=== PATIENT | male | born 1990 | race Caucasian/White ===

== ENCOUNTER 2017-01-21 22:34 | Emergency (ER) | payer OTHER ==
[2017-01-21 22:44] VITALS: BP 155/81
[2017-01-21] MEDS ORDERED: Ibuprofen TAB* 600 MG PO ONE (23:26)
[2017-01-21 23:53] LABS: Benzodiazepine Urine Screen None Detected (None Detect)
--- NOTE | 2017-01-22 00:03 | ED ---
Medical Screening - HPI Summary HPI Summary: 26M presents for drug screen because was at [facility] and was seen snorting some substance. He denies using any drugs. He also states he has dental pain that started today. He states he cracked his tooth today. He denies any fever, swelling around the eye, pain with eye movement, shortness of breath or chest pain. Tooth is located on top left. - History of Current Complaint Chief Complaint: EDGeneral Stated Complaint: POSS DRUG ABUSE Time Seen by Provider: 01/21/17 22:47 PMH/Surg Hx/FS Hx/Imm Hx Endocrine/Hematology History: Denies: Hx Anticoagulant Therapy Cardiovascular History: Denies: Hx Hypertension Infectious Disease History: No Infectious Disease History: Denies: Traveled Outside the [place] in Last 30 Days - Family History Known Family History: Negative: Cardiac Disease - Social History Alcohol Use: None Alcohol Amount: sober Substance Use Type: Reports: None Smoking Status (MU): Former Smoker Review of Systems Negative: Fever Positive: Dental Pain Negative: Chest Pain Negative: Shortness Of Breath All Other Systems Reviewed And Are Negative: Yes Physical Exam Triage Information Reviewed: Yes Vital Signs On Initial Exam: Initial Vitals Temp Pulse Resp BP Pulse Ox 98.2 F 84 18 155/81 98 01/21/17 22:41 01/21/17 22:41 01/21/17 22:41 01/21/17 22:41 01/21/17 22:41 Vital Signs Reviewed: Yes Appearance: Positive: Well-Appearing Skin: Positive: Warm, Dry Head/Face: Positive: Normal Head/Face Inspection Eyes: Positive: Normal, Conjunctiva Clear Dental: Positive: Gross Decay/Caries @ - 15. Negative: Bleeding Respiratory/Lung Sounds: Positive: Clear to Auscultation, Breath Sounds Present Cardiovascular: Positive: Normal, RRR Procedures - Procedure Summary Procedure Summary: Temporary dental filling Cleaned area and numbed area with cetacaine. placed temporary filling in tooth 15. Diagnostics - Vital Signs Vital Signs Temp Pulse Resp BP Pulse Ox 01/21/17 22:41 98.2 F 84 18 155/81 98 - Laboratory Lab Results: Lab Results 01/21/17 Range/Units 23:22 Urine Opiates Screen None detected (None Detect) Ur Barbiturates Screen None detected (None Detect) Ur Phencyclidine Scrn None detected (None Detect) Ur Amphetamines Screen None detected (None Detect) U Benzodiazepines Scrn None detected (None Detect) Urine Cocaine Screen None detected (None Detect) U Cannabinoids Screen None detected (None Detect) Lab Statement: Any lab studies that have been ordered have been reviewed, and results considered in the medical decision making process. Course/Dx - Course Course Of Treatment: 26M presents for drug screen for [facility]. drug screen was negative. patient also states having dental pain. states broke tooth today. discussed and patient agreeable to place temporary filling for pain. placed filling on tooth 15. gave patient dose of pcn here and told to take course while at [facility] to prevent infection due to filling being in place. patient understands and agrees with plan Assessment/Plan: diff dx: fracture tooth, abscess, cavities - Diagnoses Provider Diagnoses: Encounter for drug screening, Pain, dental Discharge - Discharge Plan Condition: Good Disposition: HOME Prescriptions: Penicillin VK TAB* [Penicillin VK 250 mg Tab*] 500 mg PO QID #27 tab Patient Education Materials: Toothache (ED) Referrals: Non Staff,Doctor [Primary Care Provider] - Additional Instructions: Take antibiotics: 4 times a day for 7 days, first dose given in ED Use ibuprofen every 6 hours Avoid hard, crunchy food until seen by dentist Filling is temporary and will fall out on its own Follow up with dentist as soon as possible Return to ED if develop fever, shortness of breath, pain with eye movement or swelling around eye
[2017-01-22] MEDS ORDERED: Penicillin VK TAB* 250 MG PO ONE (00:35)
== END 2017-01-22 00:54 | disposition home or self-care (01) ==
LOC: ED 22:34
DX: Z13.89 Encounter for screening for other disorder (principal); K08.89 Other specified disorders of teeth and supporting structures; Z87.891 Personal history of nicotine dependence
CPT/HCPCS: 36415; 80307; 99282; A9270-GY